=== PATIENT | female | born 1975 | race Two or more races ===

== ENCOUNTER 2023-07-06 09:28 | Emergency (ER) | payer BC, OTHER ==
[~2023-07-06] VITALS: Ht 165.1 cm; Wt 88.0 kg
[2023-07-06 10:15] VITALS: PULSE 74; RESP 12; TEMP 98.8; O2SAT 95
[2023-07-06 10:27] LABS: Basophils # (auto) 0.1 10 ^3/uL (0-0.2); Basophils % (auto) 0.8 % (0.0-2.0); Eosinophils # (auto) 0.2 10 ^3/uL (0-0.8); Hematocrit 43.7 % (36.0-46.0); Hemoglobin 14.8 g/dL (12.2-16.2); Lymphocytes # (auto) 1.6 10 ^3/uL (0.4-5.4); Lymphocytes % (auto) 19.7 % (10.0-50.0); Mean Corpuscular Hemoglobin 31.2 pg (28.0-32.0); Mean Corpuscular Hgb Conc. 33.9 g/dL (32.0-36.0); Mean Corpuscular Volume 92.3 fL (80.0-100.0); Monocytes # (auto) 0.4 10 ^3/uL (0-1.3); Neutrophils # (auto) 5.8 10 ^3/uL (1.6-8.6); Neutrophils % (auto) 72.5 % (37.0-80.0); Red Blood Cells 4.74 10^6/uL (4.0-5.20); Red Cell Distribution Width 13.4 % (11.8-14.3)
[2023-07-06 11:02] LABS: Chloride 108 mmol/L (98-107); Sodium 140 mmol/L (136-145)
[2023-07-06 11:03] LABS: Anion Gap 7 (5-15); Calcium 9.2 mg/dL (8.7-10.4); Carbon Dioxide 25 mmol/L (20-30)
[2023-07-06 11:08] LABS: BUN/Creatinine Ratio 19.4 (10.0-20.0); Blood Urea Nitrogen 13 mg/dL (9-23); Glucose 101 mg/dL (74-106); Lipase 44 U/L (12-53)
[2023-07-06 15:30] VITALS: BP 119/77; PULSE 82; RESP 14; O2SAT 96
== END 2023-07-06 15:51 | disposition home or self-care (01) ==
LOC: ER 09:28 → EDBD 09:28 → ER 15:51
DX: R55 Syncope and collapse (principal); R10.2 Pelvic and perineal pain; F17.210 Nicotine dependence, cigarettes, uncomplicated
CPT/HCPCS: 36415; 70450; 80048; 83690; 84484; 84702; 85025; 85379; 93005